=== PATIENT | female | born 1980 | race Caucasian/White ===

== ENCOUNTER 2016-04-06 05:28 | Day surgery (SDC) | payer OTHER ==
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
[2016-04-06] MEDS ORDERED: LACTATED RINGERS 1,000 ML ONE ×2 (05:46→11:39)
[2016-04-06] MEDS ORDERED: IV START KIT ONE (05:46)
[2016-04-06] MEDS ORDERED: LACTATED RINGERS 1,000 ML IV SCH ×3 (06:25→09:44)
[2016-04-06] MEDS ORDERED: CEFAZOLIN SODIUM 2 GRAM DUPLEX 2 G in Premix (D5W) 50 ml 1 EACH IV PRN (06:25)
[2016-04-06] MEDS ORDERED: SODIUM CHLORIDE 0.9% 1,000 ML IV SCH (06:25)
[2016-04-06] MEDS ORDERED: LIDOCAINE 1% 2 ML VIAL ID PRN (06:25)
[2016-04-06] MEDS ORDERED: CEFAZOLIN SODIUM 2 GM IV ONE (06:51)
[2016-04-06] MEDS ORDERED: BUPIVACAINE 0.25% EPI PF 30 ML VIAL ONE (06:51)
[2016-04-06] MEDS ORDERED: CEFAZOLIN SODIUM 2 GRAM PREMIX 100 ML IV ONE (06:53)
[2016-04-06] MEDS ORDERED: METOCLOPRAMIDE HCL 5 MG/ML 2ML VIAL ONE (06:58)
[2016-04-06] MEDS ORDERED: LIDOCAINE 2% (PRES FREE) 5 ML VIAL ONE (06:58)
[2016-04-06] MEDS ORDERED: PROPOFOL 20 ML IV ONE (06:58)
[2016-04-06] MEDS ORDERED: NEOSTIGMINE METHYLSULFATE 1 MG/ML DOSE ONE (06:58)
[2016-04-06] MEDS ORDERED: GLYCOPYRROLATE 0.2 MG/ML 1ML VIAL ONE (06:58)
[2016-04-06] MEDS ORDERED: FENTANYL 5 ML ONE (06:58)
[2016-04-06] MEDS ORDERED: MIDAZOLAM HCL 1 MG/ML 2ML VIAL ONE (06:58)
[2016-04-06] MEDS ORDERED: KETOROLAC TROMETHAMINE 30 MG/ML 1 ML VIAL ONE (06:58)
[2016-04-06] MEDS ORDERED: ONDANSETRON 4 MG/2ML 2 ML VIAL ONE (06:58)
[2016-04-06] MEDS ORDERED: ROCURONIUM BROMIDE 10 MG/ML DOSE IV ONE (06:58)
[2016-04-06] MEDS ORDERED: DEXAMETHASONE SOD PHOS 4 MG/1 ML VIAL ONE (06:58)
[2016-04-06] MEDS ORDERED: NALOXONE HCL 0.4 MG/ML VIAL IV PRN (07:58)
[2016-04-06] MEDS ORDERED: PROMETHAZINE HCL 25 MG/ML VIAL IM PRN (07:58)
[2016-04-06] MEDS ORDERED: ATROPINE SULFATE 0.4 MG/1 ML VIAL IV PRN (07:58)
[2016-04-06] MEDS ORDERED: ONDANSETRON 4 MG/2ML 2 ML VIAL IV PRN ×2 (07:58→09:44)
[2016-04-06] MEDS ORDERED: FENTANYL 100 MCG/2 ML VIAL IV PRN (07:58)
--- NOTE | 2016-04-06 09:16 | PCMBPN ---
Brief Post Op Note: Date of Procedure: 04/06/16 Start Time: 0815 Preoperative Diagnosis: 1. High grade cervical dysplasia 2. Chronic pelvic pain. Postoperative Diagnosis: 1. Same Procedure: Diagnostic laparoscopy, LEEP conization Surgeon: Tasia Bradley Assist:Chet Anesthesia: Jesus Harris CRNA Findings: normal uterus, tubes and ovaries No adhesions, no endometriosis No visible cervical lesions Condition: Good Complications: None IV Fluids: mLs of LR Urine Output: 10 mLs Estimated Blood Loss: 50 mLs Tourniquet Time: N/A Specimens: Ectocervix, endocervix, ECC Implants: N/A Drains: N/A
--- NOTE | 2016-04-06 09:30 | PDOC5 ---
Hospital Course: ADMIT DATE: DISCHARGE DATE: 04/06/16 ADMISSION DIAGNOSES: Chronic pelvic pain and high grade cervical dysplasia PROCEDURES: Diagnostic laparoscopy, cervical LEEP HISTORY OF PRESENT ILLNESS: 35 year old presenting with a long history of chronic pain. HOSPITAL COURSE: The patient was found to have high grade dysplasia. She was requesting a hysterectomy but it was felt that we needed more information first. The laparoscopy shows no visible pathology in the pelvis, normal tubes and ovaries with no suggestion of endometriosis. Leep was performed without difficulty. Pt did seem to bleed easily and profusely from every incision. By day of discharge the patient is ambulating, eating, voiding, and passing flatus without difficulty. Pain is controlled. - Objective General: Afebrile, Other (Pt appears comfortable) Lungs: Normal Air Movement (Normal for a smoker) Cardiovascular: Regular Rate and Rhythm Abdomen: Soft, Non-Distended, Normal Bowel Sounds Wound RIGGING UP MAN: Dressing in Place Genitourinary: Normal Female Genitalia Extremities: Full ROM Skin: Normal Color, Warm, Dry Neurological: Oriented x 4, Normal Speech Psych/Mental Status: Normal Mood - Discharge Diagnosis (1) Pelvic pain Status: Acute Assessment/Plan: No cause of chronic pain discovered. (2) Cervical dysplasia Status: Acute - Discharge Plan Condition: Good Disposition: Home Discharge Medications: Pt was given prescriptions in the office on 04/03/16. This was for ibuprofen 800mg and percocet 5mg. Follow-Up: Tasia Bradley MD [Staff Physician] - In 2 weeks
[2016-04-06] MEDS ORDERED: HYDROMORPHONE HCL 1 MG/ML SYRINGE ONE ×2 (09:31→11:38)
[2016-04-06] MEDS: HYDROMORPHONE HCL 1 MG/ML SYRINGE IV PRN ×2 (09:34→09:44)
[2016-04-06] MEDS ORDERED: DIPHENHYDRAMINE HCL 50 MG/1 ML VIAL IV PRN (09:44)
[2016-04-06] MEDS ORDERED: OXYCODONE/ACETAMINOPHEN 5/325 MG TABLET PO PRN (09:44)
[2016-04-06] MEDS ORDERED: IBUPROFEN 800 MG TABLET PO PRN (09:44)
[2016-04-06] MEDS ORDERED: ACETAMINOPHEN 325 MG TABLET PO PRN (09:44)
[2016-04-06] MEDS ORDERED: OXYCODONE HCL 5 MG TABLET PO PRN (09:44)
[2016-04-06] MEDS ORDERED: HYDROMORPHONE HCL 1 MG/ML SYRINGE IV PRN ×2 (09:44→10:21)
[2016-04-06] MEDS ORDERED: IBUPROFEN 800 MG TABLET ONE (11:57)
[2016-04-06] MEDS ORDERED: OXYCODONE/ACETAMINOPHEN 5/325 MG TABLET ONE (11:57)
--- NOTE | 2016-04-07 12:05 | OP ---
TEOBETH [id number] DATE OF : 1980 DATE OF PROCEDURE: 04/06/2016 PREOPERATIVE DIAGNOSES: 1. High-grade cervical dysplasia. 2. Chronic pelvic pain. POSTOPERATIVE DIAGNOSES: 1. High-grade cervical dysplasia. 2. Chronic pelvic pain. PROCEDURE PERFORMED: DIAGNOSTIC LAPAROSCOPY AND LOOP ELECTROSURGICAL EXCISION OF THE CERVIX. SURGEON: Dr. Tasia Bradley FAMILY THERAPIST: Jesus Harris CRNA ESTIMATED BLOOD LOSS: 50 mL FINDINGS: Normal mobile uterus. Normal Fallopian tubes and ovaries. There was no evidence of any adhesions. No endometriosis. The patient has had a prior tubal ligation. There were no visible cervical lesions. PROCEDURE: On the morning of 04/06/2016 after the usual preoperative preparations were completed in the preop area, Beth was brought to the operating room and placed on the operating room table in a supine position. She was made comfortable and the usual monitoring leads were placed. General anesthesia was then administered and the patient was intubated with a GlideScope without any difficulty. Once the intubation was secured, the patient was moved a little bit lower on the bed and her legs were correctly positioned in the adjustable stirrups. A vaginal perineal prep followed by an abdominal prep was then done in the usual fashion and the patient was draped for a ANNUAL CAMPAIGN MANAGER laparoscopy. A time-out was performed, verifying proper patient, procedure, position, personnel and equipment. After verifying adequate anesthesia, the cervix was visualized and grasped with a tenaculum. The uterine manipulator was easily placed through the cervix and the other instruments were removed from the vagina. Gloves were changed and attention was paid to the abdominal part of the surgery. A small vertical incision was made in the lower portion of the umbilicus. A Veress needle was placed through this and proper placement was verified. Approximately three liters of air were then instilled into the peritoneal cavity under low pressure. The Veress needle was removed and a 5 mm port was placed through this incision with direct visualization. Inspection of the intraperitoneal contents showed no evidence of any adhesions. The fundus of the uterus appeared normal. The intestines showed excellent peristalsis and freedom of movement. Even with the patient in the Trendelenburg position however, I could not adequately see the adnexa nor the cul-de-sac. A second port was therefore placed in the left lower quadrant under direct visualization. Using a manipulator through this port, the ovaries and Fallopian tubes were inspected. Both tubes had been ligated previously. The tubes, however, moved freely. There was no evidence of any past infection. Both ovaries appeared normal and pearly-white, with a few small physiologic cysts. The cul-de-sac was carefully inspected. There was no evidence of any endometriosis, no adhesions, and no suggestion of any infection. It was decided not to do anything further with the laparoscopy. The instruments were therefore all removed from the belly in the usual fashion. First I instilled approximately 240 mL of warm saline, then the instruments were removed and the gas was allowed to escape. The patient was given about five deep breaths and then the trocars were removed and these incisions were closed with a deep and superficial suture of 4-0 MONOCRYL. Steri-Strips were placed, followed by the Band-Aids. Attention was then turned to the cervical part of the surgery. The cervix was again visualized, this time with a coated speculum. It was grasped on the anterior lip with a tenaculum. Using the 1.5 cm loop, the ectocervix was first removed all around and sent as a first specimen, then the endocervical sample was taken with a deeper 1 cm loop. There was a moderate amount of bleeding while I was doing this excision. A high endocervical sample was then taken with a Kevorkian curette and sent separately. The base of the conization was then cauterized with the ball cautery. This resulted in good hemostasis, but I also put a little bit of Monsel's solution on the cervix to ensure minimal bleeding. The instruments were then all removed from the vagina. The patient was cleaned-up. She was taken out of the dorsal lithotomy position. She was gently awoken from anesthesia and extubated. She was then transferred to her bed and taken to the recovery room in stable condition.
--- NOTE | 2016-04-10 12:47 | SURGPATH ---
[facility] [address] [place] [id number] Patient Name: JORGE ALBERTO BRUCE MR#: [id number] : 1980 Gender: F Specimen #: [id number] Collected: 04/06/2016 Received: 04/09/2016 Reported: 04/10/2016 Submitting Phys: BETTE WING Copy To Phys: [facility] KEVIN FRANKLIN Clinical History / Pre-Operative Diagnosis: Cervical dysplasia Specimen Source / Surgical Procedure Performed: #1-ectocervix; #2-endocervix; #3-endocervical curettage Interpretation: 1. ECTOCERVIX, CONIZATION: - INFLAMMATION AND REACTIVE CHANGES, NO RESIDUAL DYSPLASIA IDENTIFIED 2. ENDOCERVIX, CONIZATION: - BENIGN ENDOCERVICAL TISSUE 3. ENDOCERVICAL CURETTAGE: - FRAGMENTS OF BENIGN ENDOCERVICAL GLANDULAR TISSUE - BENIGN PROLIFERATIVE PHASE ENDOMETRIUM Electronically Signed Out Dimitri Zavala M.D. Gross Description: #1 The specimen is received in a formalin filled container labeled with the patient's name and "ectocervix". Three irregular, unoriented fragments of jiménez tissue are 1.4 x 0.6 x 0.5 cm, 1.5 x 0.7 x 0.5 cm and 1.7 x 1.3 x 0.5 cm. The largest fragment is partially covered by smooth, pale pink ectocervix on one surface. The cautery roughened surgical margins of the largest fragment are inked black and the largest piece is multiply cross sectioned. Totally embedded in cassettes 1A-1D. Summary of sections: 1A-smallest fragment (four sections) 1B-middle size fragment (four sections) 1C and 1D (three sections each cassette) #2 The specimen is received in a formalin filled container labeled with the patient's name and "endocervix". It four irregular jiménez tissue fragments are 0.7 x 0.3 x 0.2 cm to 1.3 x 1.0 x 0.4 cm. The fragments are each multiply sectioned and entirely submitted from smallest the largest in cassettes 2A-2D respectively. #3 The specimen is received in a formalin filled container labeled with the patient's name and "endocervical curettings". An aggregate of hemorrhagic and mucoid material is 0.8 x 0.4 x 0.2 cm. Totally embedded in cassette #3. Erna Patrick Microscopic Description: 1. The sections show fragments of primarily ectocervical tissue with a few fragments showing transition zone. There are areas of acute inflammation and reactive epithelial changes. Dysplastic features are not identified. 2. The sections show ectocervical tissue with benign glands. There are no dysplastic features identified. 3. The sections show fragments of benign proliferative phase endometrium as well as the attached fragments of benign endocervical glandular epithelium. 1: 38732 2: 22595 3: 56519 N87.0
== END 2016-04-06 13:13 | disposition home or self-care (01) ==
LOC: SDC 05:28
PROVIDERS: ATTEND Obstetrics & Gynecology
PROC: 0UBC7ZX Excision of Cervix, Via Natural or Artificial Opening, Diagnostic (ICD-10-PCS; principal; 2016-04-06)
DX: R87.613 High grade squamous intraepithelial lesion on cytologic smear of cervix (HGSIL) (principal); R10.2 Pelvic and perineal pain; E78.00 Pure hypercholesterolemia, unspecified; J45.909 Unspecified asthma, uncomplicated; K21.9 Gastro-esophageal reflux disease without esophagitis; M79.7 Fibromyalgia; F17.210 Nicotine dependence, cigarettes, uncomplicated
CPT/HCPCS: 57522; J1170 ×2; J3010; J1100; A9270 ×2; J2765; J1885; J2250; J2405; J7120 ×2; J0690